=== PATIENT | male | born 1945 | race Caucasian/White ===

== ENCOUNTER 2024-03-30 09:55 | Outpatient (CLI) | payer BC, SELFPAY | END 2024-03-30 09:56 | disposition home or self-care (01) | LOC: AMB 03-31 01:38 | PROVIDERS: PCP Internal Medicine; Visit Provider Family Medicine | DX: R53.1 Weakness (principal); F29 Unspecified psychosis not due to a substance or known physiological condition | CPT/HCPCS: A0425; A0427 ==

== ENCOUNTER 2024-03-30 10:33 | Emergency (ER) | payer BC, SELFPAY ==
[2024-03-30] VITALS (24 sets, daily range): BP systolic 61–115; BP diastolic 41–86; PULSE 52–125; RESP 32; TEMP 35.9; O2SAT 72–100
--- NOTE | 2024-03-30 | CRLHL7_ITS ---
For Patients: As a result of the Century Cures Act, medical imaging exams and procedure reports are released immediately into your electronic medical record. You may view this report before your referring provider. If you have questions, please contact your health care provider. INDICATION: FOUND UNRESPONSIVE TECHNIQUE: CT of the head was performed without IV contrast. COMPARISON: 07/05/2021. FINDINGS: Parenchyma: No acute hemorrhage, infarction, or mass. Moderate scattered periventricular white matter hypoattenuation is nonspecific and is favored to represent chronic small vessel ischemic disease. Redemonstration of right basal ganglia chronic lacunar infarct. Ventricles and extra-axial spaces: Mild involutional changes. Visualized paranasal sinuses: Moderate mucosal thickening of the bilateral ethmoid sinuses and of the left maxillary sinus. Mastoid air cells: Clear. Bones: No focal abnormality. Additional comment: None. IMPRESSION: No acute hemorrhage or large territorial infarct. Findings discussed with Dr. Guzman at 11:02 a.m. on 03/30/2024. Slight delay in reporting due to missing images not being available until 11 a.m. Please note that all CT scans at this facility use dose modulation, iterative reconstruction, and/or weight-based dosing when appropriate to reduce radiation dose to as low as reasonably achievable. Dictated by Dwgiht Pack MD @ 03/30/2024 11:03:27 AM (Electronically Signed)
--- NOTE | 2024-03-30 | CRLHL7_ITS ---
For Patients: As a result of the Century Cures Act, medical imaging exams and procedure reports are released immediately into your electronic medical record. You may view this report before your referring provider. If you have questions, please contact your health care provider. INDICATION: FOUND UNRESPONSIVE. TECHNIQUE: CT of the cervical spine was performed without intravenous contrast. COMPARISON: None. FINDINGS: Alignment: Normal. Vertebrae: Osteopenia. Vertebral bodies and posterior elements are intact without acute fracture. [id number] degenerative changes of the visualized spine. Extra-vertebral soft tissues: Normal. Visualized brain: Normal. Additional comment: Extensive right upper lobe consolidation and opacities. IMPRESSION: 1. No acute displaced fracture or malalignment of the cervical spine. 2. Extensive right upper lobe consolidation and opacities. Please see separately dictated CT of the chest for additional details. Please note that all CT scans at this facility use dose modulation, iterative reconstruction, and/or weight-based dosing when appropriate to reduce radiation dose to as low as reasonably achievable. Dictated by Dwight Pack MD @ 03/30/2024 11:09:59 AM (Electronically Signed)
--- NOTE | 2024-03-30 | CRLHL7_ITS ---
For Patients: As a result of the Century Cures Act, medical imaging exams and procedure reports are released immediately into your electronic medical record. You may view this report before your referring provider. If you have questions, please contact your health care provider. INDICATION: Patient found unresponsive. COMPARISON: No recent prior comparison study. Comparison is made to chest CT dated 09/12/2020. TECHNIQUE: CT of the chest, abdomen and pelvis without intravenous contrast. Please note that all CT scans at this facility use dose modulation, iterative reconstruction, and/or weight-based dosing when appropriate to reduce radiation dose to as low as reasonably achievable. FINDINGS: The study is performed without intravenous contrast. This limits the sensitivity of the exam for the detection bowel pathology, focal lesions of the abdominopelvic viscera and vascular pathology including significant vascular stenosis, occlusion and dissection. THORAX Lungs: Apical segment right upper lobe dense consolidation with peripheral ground-glass opacity consistent with pneumonia or aspiration pneumonitis and a recumbent patient. Bilateral lower lobe dependent hypoventilatory changes. Benign upper lobe benign calcified granulomas. Lateral right upper lobe subpleural reticulation consistent with nonspecific minor fibrosis. Pleura: No effusion. No pneumothorax. Mediastinum: Normal caliber of the thoracic aorta and pulmonary outflow tract. Cardiomegaly. Moderate to severe proximal left anterior descending atherosclerotic coronary artery calcification. Hypoattenuation of the blood within the cardiac chambers may indicate anemia. Clinical correlation is recommended. Trachea and esophagus are normal in appearance. No mediastinal lymphadenopathy. Visualized Lower Neck: No significant incidental findings. ABDOMEN Liver: Normal contour and attenuation. No significant focal lesion. No intrahepatic biliary ductal dilatation. Gallbladder: Cholelithiasis. No pericholecystic inflammatory changes. Normal common duct caliber. Pancreas: Normal contour and attenuation. No peripancreatic inflammatory changes. No significant focal lesion. Normal main duct caliber. Spleen: Not enlarged. No significant focal lesion. Adrenal Glands: Symmetrical adrenal glands. No significant focal lesion. Kidneys: Normal bilateral renal attenuation. No significant focal lesion. 1.6 cm simple anterior interpolar left renal cortical cyst. No nephrolith. No dilatation of the intrarenal collecting systems. No ureteral stone. Nondilated ureters. Gastrointestinal tract: Normal caliber, attenuation and wall thickness of the gastrointestinal tract. Ahaustral descending and sigmoid colon. No inflammatory changes. Normal small bowel mesentery. Normal appendix. Vascular: Chronic diffuse mild aortoiliac atherosclerotic mural calcification. Normal outer wall to outer wall abdominal aortic caliber. Patency and luminal caliber of the abdominopelvic arterial and venous vasculature cannot be assessed on this noncontrast study. Peritoneal Cavity/Retroperitoneum: No ascites. No adenopathy. PELVIS No bladder lesion is identified. No significant incidental findings related to the prostate or seminal vesicles. No ascites. No adenopathy. SKELETON AND BODY WALL No acute or significant incidental findings. 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 IMPRESSION: 1. Apical segment right upper lobe dense consolidation with peripheral ground-glass opacity consistent with pneumonia or aspiration pneumonitis and a recumbent patient. 2. Cardiomegaly. Moderate to severe proximal left anterior descending atherosclerotic coronary artery calcification. 3. Hypoattenuation of the blood within the cardiac chambers may indicate anemia. Clinical correlation is recommended. 4. No acute traumatic injury is identified. 5. Incidental findings as above. The study is performed without intravenous contrast. This limits the sensitivity of the exam for the detection bowel pathology, focal lesions of the abdominopelvic viscera and vascular pathology including significant vascular stenosis, occlusion and dissection. Please note that all CT scans at this facility use dose modulation, iterative reconstruction, and/or weight-based dosing when appropriate to reduce radiation dose to as low as reasonably achievable. Dictated by Orlando Villar MD @ 03/30/2024 11:13:20 AM (Electronically Signed)
[2024-03-30 11:02] LABS: Hematocrit 16.6 % (37.0-53.0); Lymphocytes Percent Auto 91.4 % (20-44); Mean Corpuscular HGB Conc 28 gm/dL (32-36); Mean Corpuscular Hemoglobin 30 pg (26-34); Mean Corpuscular Volume 107 fL (80-100); Monocytes Percent Auto 7.8 % (0.0-11.0); Neutrophils Percent Auto 0.8 % (42.0-72.0); Red Blood Count 1.55 m/uL (4.30-5.90); White Blood Count* 20.35 K/uL (4.50-11.00)
[2024-03-30 11:04] LABS: Slide Review Reflex Yes
[2024-03-30 11:05] LABS: Hemoglobin* 4.6 gm/dL (13.5-17.5); Platelet Count* 15 K/uL (140-440)
[2024-03-30 11:12] LABS: Troponin, Point-of-Care* 3.39 ng/ml (0.01-0.04)
[2024-03-30 11:24] LABS: Albumin* 3.4 g/dL (3.3-5.0); Chloride* 109 mmol/L (96-114); Sodium* 142 mmol/L (135-149)
[2024-03-30 11:25] LABS: Potassium* 3.1 mmol/L (3.6-5.1)
[2024-03-30 11:27] LABS: Anion Gap 21 mEq/L (7-15); Aspartate Amino Transferase* 76 U/L (12-35); Bilirubin Direct* 0.8 mg/dL (0.0-0.5); Bilirubin Total* 3.5 mg/dL (0.1-1.5); Carbon Dioxide* 12 mmol/L (20-32); Creatinine* 1.4 mg/dL (0.5-1.5); Estimated Glomerular Filt Rate 52 ml/min; Total Protein* 6.1 g/dL (6.0-8.3)
[2024-03-30 11:28] LABS: Alkaline Phosphatase* 32 U/L (40-150); Blood Urea Nitrogen* 31 mg/dL (7-30); Calcium* 8.4 mg/dL (8.4-10.6); Glucose* 138 mg/dL (60-115)
[2024-03-30 11:35] LABS: Alanine Aminotransferase* 25 U/L (4-50)
[2024-03-30 11:44] LABS: Troponin I* 2.56 ng/mL (0.01-0.04)
--- NOTE | 2024-03-30 11:44 | ED_ITS ---
HPI - General Adult General Chief complaint: Altered Mental Status Stated complaint: possible stroke Time Seen by Provider: 03/30/24 10:45 History of Present Illness HPI narrative: pt left [place] [facility] ago, moved in with female in her house. yesterday fell and he told roomate not to call ems. today pt was no longer talking so she called ems. pt gaze off to R per ems, r side not moving. 78-year-old man brought to the emergency department EMS with concern of stroke. Limited information initially available. Apparently has been on the floor next to his bed since yesterday. Reportedly with long-term friend and roommate and to home he told not to call for help and let him just be there. Finally when he was less responsive, roommate called for EMS. He has said ow to some manipulations but that is the extent of his communication. Was noted to have his eyes deviated upward to the left. Also noted to be hypotensive on arrival at low 60s over 40s. After initial evaluation and imaging, I do speak with his sister Ceci from [place]. She has says that he has had limited medical care. He does take Eliquis for atrial fibrillation and she believes that he is taking it. He was in a [place] [facility] apparently for weakness over the summer and left to go live wi th lifelong friend Funmi, roommate. She says his hope has been to there. She is clear that he would not want major interventions including no resuscitation. No POLST or other living will has been filled out that she is aware of. With further investigation able to locate DNR/DNI status and much later per hospitalist POLST revealing declining even relatively limited interventions. Related Data Previous Rx's ?Medication ?Instructions ?Recorded metoprolol tartrate 25 mg tablet 25 mg PO BID #60 tabs 11/27/23 apixaban 5 mg tablet (Eliquis) 5 mg PO BID #60 tabs 03/09/24 Allergies Allergy/AdvReac Type Severity Reaction Status Date / Time lisinopril Allergy Cough Verified 11/27/23 13:59 senna AdvReac Verified 11/27/23 13:59 Review of Systems Status of ROS: Reports: unobtainable due to medical condition [facility] Medical History Hypertension ?I10 - Essential (primary) hypertension (ICD-10) Depression ?F32.A - Depression, unspecified (ICD-10) Fracture of hip, right, closed (10/05/18) ?S72.001A - Fracture of unspecified part of neck of right femur, initial encounter for closed fracture (ICD-10) Hip fracture, left ?S72.002A - Fracture of unspecified part of neck of left femur, initial encounter for closed fracture (ICD-10) Atrial fibrillation ?I48.91 - Unspecified atrial fibrillation (ICD-10) Ulcerative colitis ?K51.90 - Ulcerative colitis, unspecified, without complications (ICD-10) Surgical History 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) ?Z96.641 - Presence of right artificial hip joint (ICD-10) History of left hip hemiarthroplasty (07/06/21) ?Z96.642 - Presence of left artificial hip joint (ICD-10) Family History Mother Stroke Father Stroke Diabetes Sister Diabetes Social History What is your current living situation?: I presently have a place to live Problems where you live: declined to answer In the past 12 months, utilities in danger of being shut off: no In the past 12 mos, have been you worried that your food would run out before you had money to buy more?: never true In the past 12 mos, the food you bought just didn't last and you didn't have money to buy more?: never true Smoking Status: Never smoker Do you use any of these nicotine containing products: None How often do you have a drink containing alcohol: never How often do you have six or more drinks on one occasion: Never AUDIT-C Alcohol total score: 0 Non-prescribed substance use: denies use How often does anyone, including family, friends and others, physically hurt you : never How often does anyone, including family, friends and others, insult or talk down to you: never How often does anyone, including family, friends and others, threaten you with harm: never How often does anyone, including family, friends and others, scream or curse at you: never Exam Narrative: Exam Narrative: I meet Mr. Howard and EMS initially in stab 1. Blood pressure is noted to be low 60s over low 40s. He is supporting his own airway that and not responding to any questions. Eyes are open. Does flinch both lids when palpating the forehead. GCS of 5 perhaps. Corneas appear a little dry. Pupils are 5 mm and sluggish. Equal. There is a small subconjunctival hemorrhage surrounding the left cornea. Lower extremities are particularly cool. Hands as well. I accompany him to CT imaging. Concern of potential stroke and/or head bleed particularly since taking anticoagulation. I do independently review images of his head as they are scanned. No bleed appreciated. Cervical spine images are collected at this time and then noting some density in the upper lungs we continue to scan chest abdomen and pelvis. All done without contrast. Returning to stab room to continue further assessment. Lips are quite dry. Mouth is dry. Open mouth breathing. Again staring upward to the left although this later shifts to chest vertical and then the right. Head looks atraumatic otherwise. Examination the back and neck is without deformity. He has clearly been lying in urine-soaked attends and new bowel movement is present. During imaging he did spontaneously move his right arm. Otherwise no resistance to gravity of other 3 extremities. Only response is when I palpate suprapubic abdomen he vaguely forms/voices ow. No masses otherwise appreciated. Heart is tachycardic and distant. Lungs with breath sounds throughout. There is no lower extremity edema. Is cool in the lower aspect of the lower legs bilaterally. Const: Vital Signs, click to edit/add: Vital Signs - 24 hr 03/30/24 10:44 03/30/24 10:48 03/30/24 10:49 Temperature Pulse Rate 109 H 113 H Pulse Rate [Pulse Oximeter] 107 H Respiratory Rate 32 H Blood Pressure 94/65 Blood Pressure [Le ft Upper Arm] 94/65 Pulse Oximetry 95 95 95 Oxygen Delivery Me thod Room Air 03/30/24 10:52 03/30/24 10:57 03/30/24 11:00 Temperature Pulse Rate 105 H 101 H 125 H Pulse Rate [Pulse Oximeter] Respiratory Rate Blood Pressure 81/53 L 83/57 L Blood Pressure [Le ft Upper Arm] Pulse Oximetry 94 95 83 L Oxygen Delivery Me thod 12/17/24 11:03 03/30/24 11:03 03/30/24 11:07 Temperature Pulse Rate 101 H Pulse Rate [Pulse Oximeter] Respiratory Rate Blood Pressure 74/41 L 74/41 L 75/60 L Blood Pressure [Le ft Upper Arm] Pulse Oximetry 72 L Oxygen Delivery Me thod 03/30/24 11:12 03/30/24 11:17 03/30/24 11:22 Temperature Pulse Rate Pulse Rate [Pulse Oximeter] Respiratory Rate Blood Pressure 75/56 L 82/59 L 102/61 Blood Pressure [Le ft Upper Arm] Pulse Oximetry Oxygen Delivery Me thod 03/30/24 11:25 03/30/24 11:30 03/30/24 11:32 Temperature Pulse Rate 90 88 90 Pulse Rate [Pulse Oximeter] Respiratory Rate Blood Pressure 86/61 L Blood Pressure [Le ft Upper Arm] Pulse Oximetry 96 99 99 Oxygen Delivery Me thod 03/30/24 11:45 03/30/24 11:47 03/30/24 11:50 Temperature Pulse Rate 86 97 Pulse Rate [Pulse Oximeter] Respiratory Rate Blood Pressure 83/55 L Blood Pressure [Le ft Upper Arm] Pulse Oximetry 93 92 Oxygen Delivery Me thod 03/30/24 12:00 03/30/24 12:00 03/30/24 12:02 Temperature 96.7 F L Pulse Rate 106 H 93 Pulse Rate [Pulse Oximeter] Respiratory Rate Blood Pressure 115/86 Blood Pressure [Le ft Upper Arm] Pulse Oximetry 99 97 Oxygen Delivery Me thod 03/30/24 12:15 03/30/24 12:17 03/30/24 12:30 Temperature Pulse Rate 86 75 57 L Pulse Rate [Pulse Oximeter] Respiratory Rate Blood Pressure 67/44 L Blood Pressure [Le ft Upper Arm] Pulse Oximetry 100 100 97 Oxygen Delivery Me thod 03/30/24 12:32 03/30/24 12:33 Temperature Pulse Rate 53 L 52 L Pulse Rate [Pulse Oximeter] Respiratory Rate Blood Pressure 61/45 L Blood Pressure [Le ft Upper Arm] Pulse Oximetry 86 L 78 L Oxygen Delivery Me thod Documenting provider has reviewed patient's vital signs: yes Course Vital Signs Vital signs: Initial Vital Signs Temperature Source Temporal Artery Scan 03/30/24 10:44 Pulse Rate 107 H 03/30/24 10:44 Respiratory Rate 32 H 12/17/24 10:44 Blood Pressure 94/65 03/30/24 10:44 Blood Pressure Mean 74 03/30/24 10:44 Blood Pressure Position Supine 03/30/24 10:44 Pulse Oximetry 95 03/30/24 10:44 Oxygen Delivery Method Room Air 03/30/24 10:44 Vital Signs Pulse Rate 107 H 03/30/24 10:44 Respiratory Rate 32 H 03/30/24 10:44 Blood Pressure 94/65 03/30/24 10:44 Pulse Oximetry 95 03/30/24 10:44 Oxygen Delivery Method Room Air 03/30/24 10:44 Temperature 96.7 F L 03/30/24 12:00 Pulse Rate 52 L 03/30/24 12:33 Respiratory Rate 32 H 03/30/24 10:44 Blood Pressure 61/45 L 03/30/24 12:32 Pulse Oximetry 78 L 03/30/24 12:33 Oxygen Delivery Method Room Air 03/30/24 10:44 Medical Decision Making MDM Narrative Medical decision making narrative: EKG independently reviewed by me looks to show a junctional rhythm. Rate of 108 Would normally intubate with this GCS however it appears DNR/DNI is desired. I do have concerns of CVA and likely sepsis in this patient possibly pulmonary source. Need to be working up this event until can clarify living will/POLST. Had tried to reach out also to Funmi his roommate but only able to leave a message. His sister Ceci is clear with his wishes of no interventions. Attempting to however track down documentation have attempted to reach likely pharmacy to find out possibly what [place] [facility] recently [facility]. Blood pressure improves a little bit with fluid bolus. Have ordered 2 L in short order Labs returning with marked anemia and thrombocytopenia and elevated troponin also in the setting of markedly elevated proBNP and markedly elevated white count and CRP. DIC? Would need blood transfusion, platelets, but interventions such as this also do not appear to be wanted. Presuming pulmonary source of likely sepsis ordered Zofran and anselmoo pending documented POLST and have also inquired with our hospitalist for admission for comfort cares. Shortly after this Mr. Howard's blood pressure and then pulse begin decreasing. His breathing slows. I reach out again to his sister to be present as this appears to be his last movements. She is present on the phone at his right ear as he stops breathing and enters asystole. Mr. Howard dies peacefully in the ER. TECHNIQUE: CT of the head was performed without IV contrast. COMPARISON: 07/05/2021. FINDINGS: Parenchyma: No acute hemorrhage, infarction, or mass. Moderate scattered periventricular white matter hypoattenuation is nonspecific and is favored to represent chronic small vessel ischemic disease. Redemonstration of right basal ganglia chronic lacunar infarct. Ventricles and extra-axial spaces: Mild involutional changes. Visualized paranasal sinuses: Moderate mucosal thickening of the bilateral ethmoid sinuses and of the left maxillary sinus. Mastoid air cells: Clear. Bones: No focal abnormality. Additional comment: None. IMPRESSION: No acute hemorrhage or large territorial infarct. Findings discussed with Dr. Guzman at 11:02 a.m. on 03/30/2024. Slight delay in reporting due to missing images not being available until 11 a.m. TECHNIQUE: CT of the cervical spine was performed without intravenous contrast. COMPARISON: None. FINDINGS: Alignment: Normal. Vertebrae: Osteopenia. Vertebral bodies and posterior elements are intact without acute fracture. [id number] degenerative changes of the visualized spine. Extra-vertebral soft tissues: Normal. Visualized brain: Normal. Additional comment: Extensive right upper lobe consolidation and opacities. IMPRESSION: 1. No acute displaced fracture or malalignment of the cervical spine. 2. Extensive right upper lobe consolidation and opacities. Please see separately dictated CT of the chest for additional details. TECHNIQUE: CT of the chest, abdomen and pelvis without intravenous contrast. Please note that all CT scans at this facility use dose modulation, iterative reconstruction, and/or weight-based dosing when appropriate to reduce radiation dose to as low as reasonably achievable. FINDINGS: The study is performed without intravenous contrast. This limits the sensitivity of the exam for the detection bowel pathology, focal lesions of the abdominopelvic viscera and vascular pathology including significant vascular stenosis, occlusion and dissection. THORAX Lungs: Apical segment right upper lobe dense consolidation with peripheral ground-glass opacity consistent with pneumonia or aspiration pneumonitis and a recumbent patient. Bilateral lower lobe dependent hypoventilatory changes. Benign upper lobe benign calcified granulomas. Lateral right upper lobe subpleural reticulation consistent with nonspecific minor fibrosis. Pleura: No effusion. No pneumothorax. Mediastinum: Normal caliber of the thoracic aorta and pulmonary outflow tract. Cardiomegaly. Moderate to severe proximal left anterior descending atherosclerotic coronary artery calcification. Hypoattenuation of the blood within the cardiac chambers may indicate anemia. Clinical correlation is recommended. Trachea and esophagus are normal in appearance. No mediastinal lymphadenopathy. Visualized Lower Neck: No significant incidental findings. ABDOMEN Liver: Normal contour and attenuation. No significant focal lesion. No intrahepatic biliary ductal dilatation. Gallbladder: Cholelithiasis. No pericholecystic inflammatory changes. Normal common duct caliber. Pancreas: Normal contour and attenuation. No peripancreatic inflammatory changes. No significant focal lesion. Normal main duct caliber. Spleen: Not enlarged. No significant focal lesion. Adrenal Glands: Symmetrical adrenal glands. No significant focal lesion. Kidneys: Normal bilateral renal attenuation. No significant focal lesion. 1.6 cm simple anterior interpolar left renal cortical cyst. No nephrolith. No dilatation of the intrarenal collecting systems. No ureteral stone. Nondilated ureters. Gastrointestinal tract: Normal caliber, attenuation and wall thickness of the gastrointestinal tract. Ahaustral descending and sigmoid colon. No inflammatory changes. Normal small bowel mesentery. Normal appendix. Vascular: Chronic diffuse mild aortoiliac atherosclerotic mural calcification. Normal outer wall to outer wall abdominal aortic caliber. Patency and luminal caliber of the abdominopelvic arterial and venous vasculature cannot be assessed on this noncontrast study. Peritoneal Cavity/Retroperitoneum: No ascites. No adenopathy. PELVIS No bladder lesion is identified. No significant incidental findings related to the prostate or seminal vesicles. No ascites. No adenopathy. SKELETON AND BODY WALL No acute or significant incidental findings. 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 IMPRESSION: 1. Apical segment right upper lobe dense consolidation with peripheral ground-glass opacity consistent with pneumonia or aspiration pneumonitis and a recumbent patient. 2. Cardiomegaly. Moderate to severe proximal left anterior descending atherosclerotic coronary artery calcification. 3. Hypoattenuation of the blood within the cardiac chambers may indicate anemia. Clinical correlation is recommended. 4. No acute traumatic injury is identified. 5. Incidental findings as above. Medical Records Medical records reviewed: Yes I reviewed the patient's medical records Lab Data Lab results reviewed: Yes I reviewed the patient's lab results Labs: Lab Results 03/30/24 03/30/24 03/30/24 Range/Units 10:48 11:02 11:59 WBC 20.35 H (4.50-11.00) K/uL Corrected WBC 1.06 L* (4.50-11.00) K/UL RBC 1.55 L (4.30-5.90) m/uL Hgb 4.6 L* (13.5-17.5) gm/dL Hct 16.6 L (37.0-53.0) % MCV 107 H (80-100) fL MCH 30 (26-34) pg MCHC 28 L (32-36) gm/dL RDW Coeff of Lanie 20.0 H (11.5-15.5) % Plt Count 15 L* (140-440) K/uL Neut % (Auto) 0.8 L (42.0-72.0) % Lymph % (Auto) 91.4 H (20-44) % Burnet % (Auto) 7.8 (0.0-11.0) % Eos % (Auto) 0.0 (0.0-7.0) % Baso % (Auto) 0.0 (0.0-3.0) % Neut # (Auto) 0.00 L (1.7-7.0) K/uL Lymph # (Auto) 1.00 (0.90-2.90) K/uL Burnet # (Auto) 0.10 (0.00-0.90) K/UL Eos # (Auto) 0.00 (0.00-0.50) K/uL Baso # (Auto) 0.00 (0.00-0.30) K/uL Abs Immat Gran (auto) 0.00 (0.00-0.30) K/uL Imm/Tot Granulo (auto) 0.0 % Diff Slide Review Acceptable Review (Acceptable) Sodium 142 (135-149) mmol/L Potassium 3.1 L (3.6-5.1) mmol/L Chloride 109 (96-114) mmol/L Carbon Dioxide 12 L (20-32) mmol/L Anion Gap 21 H (7-15) mEq/L BUN 31 H (7-30) mg/dL Creatinine 1.4 (0.5-1.5) mg/dL Estimated GFR 52 ml/min Glucose 138 H (60-115) mg/dL Calcium 8.4 (8.4-10.6) mg/dL Total Bilirubin 3.5 H (0.1-1.5) mg/dL Direct Bilirubin 0.8 H (0.0-0.5) mg/dL AST 76 H (12-35) U/L ALT 25 (4-50) U/L Alkaline Phosphatase 32 L (40-150) U/L Troponin I 2.56 H* (0.01-0.04) ng/mL C-Reactive Protein 18.6 H (0.5-1.0) mg/dL NT-Pro-B Natriuret Pep 44395 pg/mL Total Protein 6.1 (6.0-8.3) g/dL Albumin 3.4 (3.3-5.0) g/dL Urine Color (Yellow) Urine Appearance (Clear) Urine pH (5.0-8.5) Ur Specific [place] (1.000-1.030) Urine Protein (Negative) Urine Glucose (UA) (Negative) Urine Ketones (Negative) Urine Blood (Negative) Urine Nitrite (Negative) Urine Bilirubin (Negative) Urine Urobilinogen (0.2-1.0) Ur Leukocyte Esterase (Negative) Urine RBC (0-2) Urine WBC (0-5) Ur Squamous Epith Cells (None-Few) Amorphous Sediment (None) Urine Bacteria (None) SARS-CoV-2 (PCR) Negative SARS-CoV-2 (Negative) Influenza Type A (PCR) Negative PCR FLU A (Negative) Influenza Type B (PCR) Negative PCR FLU B (Negative) POC Troponin I 3.39 H (0.01-0.04) ng/ml 03/30/24 Range/Units 12:10 WBC (4.50-11.00) K/uL Corrected WBC (4.50-11.00) K/UL RBC (4.30-5.90) m/uL Hgb (13.5-17.5) gm/dL Hct (37.0-53.0) % MCV (80-100) fL MCH (26-34) pg MCHC (32-36) gm/dL RDW Coeff of Lanie (11.5-15.5) % Plt Count (140-440) K/uL Neut % (Auto) (42.0-72.0) % Lymph % (Auto) (20-44) % Burnet % (Auto) (0.0-11.0) % Eos % (Auto) (0.0-7.0) % Baso % (Auto) (0.0-3.0) % Neut # (Auto) (1.7-7.0) K/uL Lymph # (Auto) (0.90-2.90) K/uL Burnet # (Auto) (0.00-0.90) K/UL Eos # (Auto) (0.00-0.50) K/uL Baso # (Auto) (0.00-0.30) K/uL Abs Immat Gran (auto) (0.00-0.30) K/uL Imm/Tot Granulo (auto) % Diff Slide Review (Acceptable) Sodium (135-149) mmol/L Potassium (3.6-5.1) mmol/L Chloride (96-114) mmol/L Carbon Dioxide (20-32) mmol/L Anion Gap (7-15) mEq/L BUN (7-30) mg/dL Creatinine (0.5-1.5) mg/dL Estimated GFR ml/min Glucose (60-115) mg/dL Calcium (8.4-10.6) mg/dL Total Bilirubin (0.1-1.5) mg/dL Direct Bilirubin (0.0-0.5) mg/dL AST (12-35) U/L ALT (4-50) U/L Alkaline Phosphatase (40-150) U/L Troponin I (0.01-0.04) ng/mL C-Reactive Protein (0.5-1.0) mg/dL NT-Pro-B Natriuret Pep pg/mL Total Protein (6.0-8.3) g/dL Albumin (3.3-5.0) g/dL Urine Color Yellow (Yellow) Urine Appearance Clear (Clear) Urine pH 5.5 (5.0-8.5) Ur Specific [place] >= 1.030 (1.000-1.030) Urine Protein 1+ A (Negative) Urine Glucose (UA) Negative (Negative) Urine Ketones Negative (Negative) Urine Blood Negative (Negative) Urine Nitrite Negative (Negative) Urine Bilirubin Negative (Negative) Urine Urobilinogen 0.2 (0.2-1.0) Ur Leukocyte Esterase Negative (Negative) Urine RBC 0-2 (0-2) Urine WBC 0-2 (0-5) Ur Squamous Epith Cells Moderate A (None-Few) Amorphous Sediment Moderate A (None) Urine Bacteria None (None) SARS-CoV-2 (PCR) (Negative) Influenza Type A (PCR) (Negative) Influenza Type B (PCR) (Negative) POC Troponin I (0.01-0.04) ng/ml Critical Care Time Critical Care Time Critical Care Time: Yes Attestation: The patient required my highest level preparedness to intervene emergently and I personally spent this critical care time directly and personally managing the patient. This critical care time included: Obtaining a history; Examining the patient; Pulse oximetry; Ordering and reviewing of studies; Arranging urgent treatment with development of a management plan; Evaluation of patients response to treatment; Frequent reassessment discussions with other providers. This critical care time was performed to assess and manage the high probability of imminent life-threatening deterioration that could result in multiorgan failure. It was exclusive of separate billable procedures and treating other patients and teaching time. Total Critical Care Time in Minutes: 70 Discharge Plan Discharge Clinical Impression: Pneumonia, Altered mental status, Sepsis, , Anemia Patient Disposition: Prescriptions: No Action metoprolol tartrate 25 mg tablet 25 mg PO BID Qty: 60 3RF Eliquis 5 mg tablet 5 mg PO BID Qty: 60 2RF Follow Up/Referrals: Mathew Vela MD [Primary Care Provider] - Probable Cause of Probable Cause of : Pneumonia
[2024-03-30 11:45] LABS: C Reactive Protein* 18.6 mg/dL (0.5-1.0)
[2024-03-30 11:59] LABS: Corrected White Blood Count 1.06 K/UL (4.50-11.00)
[2024-03-30 12:02] LABS: Slide Review Acceptable Review (Acceptable)
[2024-03-30 12:06] LABS: NT Pro B Type NatriureticPept* 54600 pg/mL
[2024-03-30 12:14] LABS: Appearance Urine Clear (Clear); Bilirubin Urine Negative (Negative); Blood Urine Negative (Negative); Color Urine Yellow (Yellow); Glucose Urine Negative (Negative); Ketones Urine Negative (Negative); Leukocyte Esterase Urine Negative (Negative); Nitrite Urine Negative (Negative); Protein Urine 1+ (Negative); Specific Gravity Urine >= 1.030 (1.000-1.030); Urobilinogen Urine 0.2 (0.2-1.0); pH Urine 5.5 (5.0-8.5)
[2024-03-30 12:22] LABS: RBC Urine 0-2 (0-2); Squamous Epithelial Cell Urine Moderate (None-Few); WBC Urine 0-2 (0-5)
[2024-03-30 12:23] LABS: Amorphous Sediment Urine Moderate
--- NOTE | 2024-03-30 12:38 | ED.NURSE ---
Pt is unresponsive to touch, sound, or verbal stimuli.
[2024-03-30 12:48] LABS: PCR FLU A Negative PCR FLU A (Negative); PCR FLU B Negative PCR FLU B (Negative); SARS PCR* Negative SARS-CoV-2 (Negative)
--- NOTE | 2024-03-30 17:27 | ED.NURSE ---
Pt time of 1243. Nieves DOBBINS, present. Next of kin, Ceci (sister), notified. disability examiner called at [phone], examiner released the patient. [facility] called, spoke with Jaja. [facility] released the patient at [phone], no donation. Patient to be released to [facility]. 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
--- NOTE | 2024-03-30 18:11 | ED.NURSE ---
[facility] called to notify family declined eye donation at approximately [phone]. home came to pear picker pt at [phone].
== END 2024-03-30 18:00 | disposition expired ==
PROVIDERS: Emergency Provider Family Medicine; PCP Internal Medicine
DX: A41.9 Sepsis, unspecified organism (principal); J18.9 Pneumonia, unspecified organism; R41.82 Altered mental status, unspecified
CPT/HCPCS: 36415; 70450; 71250; 72125; 74176; 80048; 80076; 81001; 83880; 84484; 85025; 86140; 86850; 86900; 86901; 87040; 87631; 93005; 96374; 96375; 99284; 99291